=== PATIENT | female | born 2000 | race Caucasian/White ===

== ENCOUNTER 2024-06-08 07:38 | Emergency (ER) | payer BC, OTHER ==
[2024-06-08 07:56] VITALS: BP 116/65; PULSE 95; RESP 16; TEMP 98.2; BMI 24.7
[2024-06-08] MEDS ORDERED: FAMOTIDINE 20 MG/50 ML IVPB 20 MG/50 ML MG IVPB ONE (08:38)
[2024-06-08] MEDS: SODIUM CHLORIDE 0.9% 500 ML INFUS.BAG IV ONE (09:13)
[2024-06-08] MEDS: FAMOTIDINE 20 MG/50 ML IVPB 20 MG/50 ML MG IVPB ONE (09:13)
[2024-06-08 09:33] LABS: THROAT:GRP A STREP NOT DETECTED (NOTDETECTED)
[2024-06-08 09:36] LABS: HEMATOCRIT 35.8 % (32.4-45.2); HEMOGLOBIN 11.5 G/dL (10.7-15.3); MCH 31.5 pg (25.7-33.7); MCHC 32.2 g/dl (32.0-36.0); MEAN CELL VOLUME 97.8 fl (80-96); MEAN PLT VOLUME 8.8 fl (7.5-11.1); PLATELET COUNT 256.5 10^3/uL (134-434); RBC 3.66 10^6/uL (3.60-5.2); RDW 13.6 % (11.6-15.6); WHITE BLOOD COUNT 16.7 10^3/uL (4.0-10.8)
[2024-06-08 09:42] LABS: ALBUMIN 3.7 g/dl (3.4-5.0); BILIRUBIN,TOTAL 0.6 mg/dl (0.2-1); CALCIUM 9.2 mg/dl (8.5-10.1); CREATININE 0.5 mg/dl (0.6-1.3); PLATELET ESTIMATE ADEQUATE; POTASSIUM 4.3 mmol/L (3.5-5.1); TOT PROT 6.5 g/dl (6.4-8.2)
[2024-06-08 10:20] LABS: HCG,QUALITATIVE URINE Negative
[2024-06-08] MEDS ORDERED: ACETAMINOPHEN INJECTION 100 ML IVPB ONE (10:58)
[2024-06-08] MEDS: ACETAMINOPHEN 1000 MG/100 ML BAG IVPB ONE (11:03)
== END 2024-06-08 11:58 | disposition home or self-care (01) ==
LOC: FER 07:38
PROC: 3E033GC Introduction of Other Therapeutic Substance into Peripheral Vein, Percutaneous Approach (ICD-10-PCS; principal; 2024-06-08)
PROC: 3E033NZ Introduction of Analgesics, Hypnotics, Sedatives into Peripheral Vein, Percutaneous Approach (ICD-10-PCS; 2024-06-08)
DX: R11.2 Nausea with vomiting, unspecified (principal); R53.83 Other fatigue; R50.9 Fever, unspecified; R30.0 Dysuria; R10.84 Generalized abdominal pain; Z20.822 Contact with and (suspected) exposure to COVID-19
CPT/HCPCS: 0241U-QW; 36415; 74177-TC; 80053; 81003; 81015; 83690; 84703; 85027; 87086; 87651; 99285-25; J0131; Q9967